=== PATIENT | male | born 1950 | race Caucasian/White ===

== ENCOUNTER 2019-09-02 13:55 | Inpatient (IN) ==
[2019-09-02] MEDS ORDERED: Isovue-370 500 ML BOTTLE IVP ONE (14:42)
[2019-09-02 15:31] LABS: Basophils % 0.2 %; Eosinophils # 0.1 K/mcL (0.0-0.6); Eosinophils % 0.7 %; Hemoglobin 14.9 g/dL (12.9-16.9); Lymphocytes # 0.7 K/mcL (0.6-4.6); Lymphocytes % 3.4 %; Mean Corpuscular HGB Conc 32.4 g/dL (31.6-35.5); Mean Corpuscular Hemoglobin 31.2 pg (28.0-33.3); Mean Corpuscular Volume 96.2 fL (83.0-100.0); Mean Platelet Volume 11.5 fL (9.4-12.4); Monocytes # 1.6 K/mcL (0.0-1.3); Monocytes % 8.1 %; Neutrophils # 16.4 K/mcL (1.6-8.9); Platelet Count 179 K/mcL (140-400); Red Blood Count 4.78 M/mcL (4.19-5.50); Red Cell Distribution Width 13.2 % (11.5-14.5); Segmented Neutrophils % 84.6 %; White Blood Count 19.4 K/mcL (4.3-11.1)
[2019-09-02 15:50] LABS: BUN/Creatinine Ratio 17 (6-26); Blood Urea Nitrogen 15 mg/dL (8-23); Calcium 9.4 mg/dL (8.6-10.3); Carbon Dioxide 24 mEq/L (23-29); Chloride 108 mEq/L (98-107); Glucose 96 mg/dL (70-105); Osmolality,Calculated 291 (280-300); Potassium 3.9 mEq/L (3.5-5.1); Sodium 140 mEq/L (136-145); Troponin I 0.03 ng/mL (< 0.04); eGFR For African Americans > 60 (> 60); eGFR For Non-African Americans > 60 (> 60)
[2019-09-02] MEDS ORDERED: Azithromycin 500 MG in 0.9 % Sodium Chloride 250 ML IVPB ONE (17:26)
[2019-09-02] MEDS ORDERED: cefTRIAXone 1,000 MG in Water for inj. (sterile) 10 ML IVP ONE (17:26)
[2019-09-02] MEDS ORDERED: *HR* FentaNYL (PF) 100 MCG/2 ML VIAL IVP ONE (19:09)
[2019-09-02] MEDS ORDERED: levoFLOXacin 750 MG/150 ML 750 MG/150 ML BAG IVPB ONE (19:54)
[2019-09-02] MEDS ORDERED: methylPREDNISolone 125 MG/2 ML VIAL IVP ONE (19:54)
[2019-09-02] MEDS ORDERED: GuaiFENesin Liq 200 MG/10 ML UDC PO PRN (19:56)
[2019-09-02] MEDS ORDERED: Ringers Solution, Lactated 1,000 ML IVC SCH (20:00)
[2019-09-02] MEDS ORDERED: traMADol 50 MG TABLET PO PRN (20:24)
[2019-09-02] MEDS ORDERED: Acetaminophen 325 MG TABLET PO PRN (21:51)
[2019-09-02] MEDS: Ipratropium/Albuterol Neb 3 ML IH SCH ×2 (22:05→23:00)
[2019-09-02] MEDS: *HR* HYDROcodone/Acet 5/325 mg TABLET PO PRN (22:17)
[2019-09-02 22:32] LABS: Bilirubin,Urine Small (Negative); Blood,Urine Trace (Negative); Clarity,Urine Clear (Clear); Color,Urine Dark Yellow (Yellow); Glucose,Urine (UA) Normal (Normal); Ketones,Urine Negative (Negative); Leukocyte Esterase,Urine Negative (Negative); Nitrite,Urine Negative (Negative); Protein,Urine 100 mg/dL (Neg-Trace); Specific Gravity,Urine > 1.030 (1.010-1.025)
[2019-09-03] MEDS: Piperacillin/Tazobactam 3.375 GM in 0.9 % Sodium Chloride Mini Bag 100 ML IVPB SCH ×4 (00:40→23:43)
[2019-09-03] MEDS: Ipratropium/Albuterol Neb 3 ML IH SCH ×6 (03:29→23:52)
[2019-09-03 05:14] LABS: Basophils % 0.1 %; Hematocrit 42.6 % (37.5-50.1); Hemoglobin 13.9 g/dL (12.9-16.9); Lymphocytes # 0.3 K/mcL (0.6-4.6); Lymphocytes % 1.8 %; Mean Corpuscular HGB Conc 32.6 g/dL (31.6-35.5); Mean Corpuscular Volume 94.9 fL (83.0-100.0); Mean Platelet Volume 11.6 fL (9.4-12.4); Monocytes # 0.4 K/mcL (0.0-1.3); Monocytes % 2.9 %; Neutrophils # 13.8 K/mcL (1.6-8.9); Platelet Count 173 K/mcL (140-400); Red Blood Count 4.49 M/mcL (4.19-5.50); Red Cell Distribution Width 13.1 % (11.5-14.5); Segmented Neutrophils % 92.2 %; White Blood Count 14.9 K/mcL (4.3-11.1)
[2019-09-03] MEDS: MethylPREDNISolone 40 MG/ML VIAL IVP SCH ×2 (05:20→17:58)
[2019-09-03 05:25] LABS: INR 1.1; Prothrombin Time 12.8 Seconds (9.4-12.1)
[2019-09-03 05:37] LABS: BUN/Creatinine Ratio 16 (6-26); Blood Urea Nitrogen 13 mg/dL (8-23); Calcium 9.1 mg/dL (8.6-10.3); Carbon Dioxide 20 mEq/L (23-29); Chloride 108 mEq/L (98-107); Glucose 181 mg/dL (70-105); Osmolality,Calculated 291 (280-300); Sodium 138 mEq/L (136-145); eGFR For African Americans > 60 (> 60); eGFR For Non-African Americans > 60 (> 60)
[2019-09-03] MEDS ORDERED: Aminoglycoside Consult 1 EACH MC ONE (07:31)
[2019-09-03] MEDS ORDERED: levoFLOXacin 750 MG/150 ML 750 MG/150 ML BAG IVPB SCH (09:00)
[2019-09-03] MEDS ORDERED: *HR* Promethazine 25 MG/ML VIAL IVP PRN (09:27)
[2019-09-03] MEDS ORDERED: Ondansetron 4 MG/2 ML VIAL IVP ONE (09:27)
[2019-09-03] MEDS: Loratadine 10 MG TABLET PO SCH (12:37)
[2019-09-03 14:42] LABS: Source of Body Fluid RUL BAL
[2019-09-03 15:06] LABS: Appearance of Body Fluid Cloudy (Clear); Volume of Body Fluid 23 mL
[2019-09-03] MEDS ORDERED: E-Z-PAQUE (BARIUM SULF) SUSP 1 BOTTLE PO ONE (15:28)
[2019-09-03 15:53] LABS: Appearance of Body Fluid Cloudy (Clear); Volume of Body Fluid 15 mL
[2019-09-03] MEDS: *HR* HYDROcodone/Acet 5/325 mg TABLET PO PRN (22:22)
[2019-09-04] MEDS: Ipratropium/Albuterol Neb 3 ML IH SCH ×4 (03:35→15:44)
[2019-09-04] MEDS: MethylPREDNISolone 40 MG/ML VIAL IVP SCH (05:51)
[2019-09-04 06:57] VITALS: BP 117/79
[2019-09-04] MEDS: Piperacillin/Tazobactam 3.375 GM in 0.9 % Sodium Chloride Mini Bag 100 ML IVPB SCH (08:22)
[2019-09-04] MEDS: Loratadine 10 MG TABLET PO SCH (08:23)
[2019-09-06 08:07] LABS: Influenza A PCR Body Fluid NOT DETECTED; Influenza B PCR Body Fluid NOT DETECTED; RVP Body Fluid Source BAL LUL; RVP Body Fluid Source BAL RUL
[2019-09-06 10:49] LABS: RSV PCR Body Fluid NOT DETECTED
== END 2019-09-04 17:04 | disposition home or self-care (01) | DRG 193 ==
LOC: 2NENU 13:55 → EMEROOARM 13:55 → SUATTDRO 20:15 → 2NENU 21:14 → SUATTDRO 09-03 14:36
PROVIDERS: ADMIT Internal Medicine; ATTEND Internal Medicine

== ENCOUNTER 2019-11-02 07:33 | Observation (INO) ==
[2019-11-02] MEDS ORDERED: 0.9 % Sodium Chloride 1,000 ML IVC ONE ×2 (08:13→08:59)
[2019-11-02 08:15] LABS: Basophils # 0.1 K/mcL (0.0-0.2); Basophils % 0.5 %; Eosinophils % 0.2 %; Hematocrit 48.7 % (37.5-50.1); Hemoglobin 15.8 g/dL (12.9-16.9); Immature Granulocytes % 4.2 % (0-4); Lymphocytes # 0.7 K/mcL (0.6-4.6); Mean Corpuscular HGB Conc 32.4 g/dL (31.6-35.5); Mean Corpuscular Hemoglobin 31.4 pg (28.0-33.3); Mean Corpuscular Volume 96.8 fL (83.0-100.0); Monocytes # 0.7 K/mcL (0.0-1.3); Monocytes % 3.9 %; Neutrophils # 15.1 K/mcL (1.6-8.9); Platelet Count 147 K/mcL (140-400); Red Blood Count 5.03 M/mcL (4.19-5.50); Red Cell Distribution Width 15.3 % (11.5-14.5); Segmented Neutrophils % 87.2 %; White Blood Count 17.3 K/mcL (4.3-11.1)
[2019-11-02] MEDS ORDERED: Ipratropium/Albuterol Neb 3 ML IH ONE (08:15)
[2019-11-02] MEDS ORDERED: Azithromycin 500 MG in 0.9 % Sodium Chloride 250 ML IVPB ONE (08:16)
[2019-11-02] MEDS ORDERED: Piperacillin/Tazobactam 3.375 GM in 0.9 % Sodium Chloride Mini Bag 100 ML IVPB ONE (08:16)
[2019-11-02 08:33] LABS: BUN/Creatinine Ratio 15 (6-26); Blood Urea Nitrogen 14 mg/dL (8-23); Calcium 9.2 mg/dL (8.6-10.3); Carbon Dioxide 28 mEq/L (23-29); Chloride 106 mEq/L (98-107); Glucose 125 mg/dL (70-105); Osmolality,Calculated 298 (280-300); Potassium 3.4 mEq/L (3.5-5.1); Sodium 143 mEq/L (136-145); Troponin I < 0.03 ng/mL (< 0.04); eGFR For African Americans > 60 (> 60); eGFR For Non-African Americans > 60 (> 60)
[2019-11-02] MEDS ORDERED: *HR* FentaNYL (PF) 100 MCG/2 ML VIAL IVP ONE (08:33)
[2019-11-02] MEDS ORDERED: Naloxone 0.4 MG/ML INJ IVP PRN (09:16)
[2019-11-02] MEDS: Ibuprofen 600 MG TABLET PO PRN ×2 (14:06→21:09)
[2019-11-02] MEDS: Ipratropium/Albuterol Neb 3 ML IH SCH ×3 (16:18→23:18)
[2019-11-02] MEDS ORDERED: tiZANidine 4 MG TABLET PO PRN (17:15)
[2019-11-02] MEDS ORDERED: Piperacillin/Tazobactam 3.375 GM VIAL ONE (18:40)
[2019-11-02] MEDS: Piperacillin/Tazobactam 3.375 GM in 0.9 % Sodium Chloride Mini Bag 100 ML IVPB SCH (18:45)
[2019-11-02] MEDS: Budesonide/Formoterol 160/4.5 1 PUFF INH IH SCH (19:50)
[2019-11-02] MEDS: Nystatin POWDER 30 GM BOTTLE TP SCH (21:09)
[2019-11-03 02:03] LABS: Basophils # 0.1 K/mcL (0.0-0.2); Basophils % 0.6 %; Eosinophils # 0.1 K/mcL (0.0-0.6); Eosinophils % 0.8 %; Hematocrit 44.5 % (37.5-50.1); Hemoglobin 14.9 g/dL (12.9-16.9); Immature Granulocytes % 6.5 % (0-4); Lymphocytes # 0.8 K/mcL (0.6-4.6); Lymphocytes % 4.7 %; Mean Corpuscular HGB Conc 33.5 g/dL (31.6-35.5); Mean Corpuscular Hemoglobin 31.2 pg (28.0-33.3); Mean Corpuscular Volume 93.1 fL (83.0-100.0); Mean Platelet Volume 10.5 fL (9.4-12.4); Monocytes # 0.8 K/mcL (0.0-1.3); Monocytes % 5.1 %; Platelet Count 137 K/mcL (140-400); Red Blood Count 4.78 M/mcL (4.19-5.50); Red Cell Distribution Width 15.4 % (11.5-14.5); Segmented Neutrophils % 82.3 %; White Blood Count 16.2 K/mcL (4.3-11.1)
[2019-11-03 02:08] LABS: Neutrophils # 13.3 K/mcL (1.6-8.9)
[2019-11-03 02:23] LABS: BUN/Creatinine Ratio 14 (6-26); Blood Urea Nitrogen 14 mg/dL (8-23); Carbon Dioxide 26 mEq/L (23-29); Chloride 106 mEq/L (98-107); Glucose 97 mg/dL (70-105); Osmolality,Calculated 290 (280-300); Potassium 3.5 mEq/L (3.5-5.1); Sodium 140 mEq/L (136-145); eGFR For African Americans > 60 (> 60); eGFR For Non-African Americans > 60 (> 60)
[2019-11-03 02:30] LABS: Platelet Estimate Decreased (Normal)
[2019-11-03] MEDS: Ipratropium/Albuterol Neb 3 ML IH SCH ×5 (04:07→20:37)
[2019-11-03] MEDS: Piperacillin/Tazobactam 3.375 GM in 0.9 % Sodium Chloride Mini Bag 100 ML IVPB SCH ×3 (04:10→19:44)
[2019-11-03] MEDS: Ibuprofen 600 MG TABLET PO PRN (05:53)
[2019-11-03] MEDS: Budesonide/Formoterol 160/4.5 1 PUFF INH IH SCH ×2 (07:45→20:37)
[2019-11-03] MEDS: Lactobacillus 1 EACH CAP.SPRINK PO SCH (08:09)
[2019-11-03] MEDS: predniSONE 20 MG TABLET PO SCH (08:09)
[2019-11-03] MEDS: Loratadine 10 MG TABLET PO SCH (08:09)
[2019-11-03] MEDS ORDERED: REVEFENACIN 175 MCG IH SCH (09:00)
[2019-11-03] MEDS ORDERED: BIFIDOBACTERIUM INFANTIS 4 MG PO SCH (09:00)
[2019-11-03] MEDS ORDERED: levoFLOXacin 750 MG/150 ML 750 MG/150 ML BAG IVPB SCH (09:00)
[2019-11-03] MEDS: Acetaminophen 325 MG TABLET PO PRN ×2 (11:21→19:45)
[2019-11-03] MEDS: Nystatin POWDER 30 GM BOTTLE TP SCH ×2 (14:24→21:07)
[2019-11-03] MEDS: *HR* Heparin 5,000 UNIT/ML VIAL SQ SCH (17:42)
[2019-11-04] MEDS: Ipratropium/Albuterol Neb 3 ML IH SCH ×5 (00:44→15:55)
[2019-11-04] MEDS: Piperacillin/Tazobactam 3.375 GM in 0.9 % Sodium Chloride Mini Bag 100 ML IVPB SCH ×2 (03:14→10:43)
[2019-11-04 04:51] LABS: White Blood Count 12.5 K/mcL (4.3-11.1)
[2019-11-04 04:52] LABS: Basophils # 0.1 K/mcL (0.0-0.2); Basophils % 0.4 %; Eosinophils # 0.1 K/mcL (0.0-0.6); Eosinophils % 0.5 %; Hematocrit 41.9 % (37.5-50.1); Hemoglobin 13.8 g/dL (12.9-16.9); Immature Granulocytes % 3.3 % (0-4); Lymphocytes # 0.7 K/mcL (0.6-4.6); Lymphocytes % 5.2 %; Mean Corpuscular HGB Conc 32.9 g/dL (31.6-35.5); Mean Corpuscular Hemoglobin 31.5 pg (28.0-33.3); Mean Corpuscular Volume 95.7 fL (83.0-100.0); Mean Platelet Volume 10.8 fL (9.4-12.4); Monocytes # 0.6 K/mcL (0.0-1.3); Monocytes % 4.6 %; Neutrophils # 10.8 K/mcL (1.6-8.9); Platelet Count 131 K/mcL (140-400); Red Blood Count 4.38 M/mcL (4.19-5.50); Red Cell Distribution Width 15.1 % (11.5-14.5)
[2019-11-04 05:11] LABS: BUN/Creatinine Ratio 20 (6-26); Blood Urea Nitrogen 17 mg/dL (8-23); Calcium 9.3 mg/dL (8.6-10.3); Carbon Dioxide 21 mEq/L (23-29); Chloride 109 mEq/L (98-107); Glucose 101 mg/dL (70-105); Osmolality,Calculated 290 (280-300); Potassium 3.3 mEq/L (3.5-5.1); Sodium 139 mEq/L (136-145); eGFR For African Americans > 60 (> 60); eGFR For Non-African Americans > 60 (> 60)
[2019-11-04] MEDS: *HR* Heparin 5,000 UNIT/ML VIAL SQ SCH (05:31)
[2019-11-04] MEDS: predniSONE 20 MG TABLET PO SCH (07:35)
[2019-11-04] MEDS: Loratadine 10 MG TABLET PO SCH (07:35)
[2019-11-04] MEDS: Lactobacillus 1 EACH CAP.SPRINK PO SCH (07:35)
[2019-11-04] MEDS: Budesonide/Formoterol 160/4.5 1 PUFF INH IH SCH (07:56)
[2019-11-04] MEDS ORDERED: Azithromycin 500 MG in 0.9 % Sodium Chloride 250 ML IVPB SCH (09:00)
[2019-11-04] MEDS: Nystatin POWDER 30 GM BOTTLE TP SCH (13:38)
[2019-11-04 15:48] VITALS: BP 145/61
== END 2019-11-04 17:45 | disposition home or self-care (01) ==
LOC: EMEROOARM 07:33 → 3ANU 07:33 → SUATTDRO 10:10 → 3ANU 11:33
PROVIDERS: ADMIT Internal Medicine; ATTEND Internal Medicine